=== PATIENT | male | born 1945 | race Caucasian/White ===

== ENCOUNTER → 2018-08-11 09:28 | Outpatient (CLI) | payer MEDICARE ==
--- NOTE | 2018-08-15 14:01 | EC ---
PATIENT:DIANELYS MARIE DATE OF SERVICE: 08/11/18 SEX: M MEDICAL RECORD: [id number] DATE OF : [birth year] LOCATION:[facility] AGE OF PATIENT: 73 ADMISSION DATE: 08/11/18 REFERRING PHYSICIAN: INTERPRETING PHYSICIAN: JIMMIE GAMEZ MD ECHOCARDIOGRAM REPORT ECHO CHARGES 4 ECHO COMPLETE Date: 08/11/18 CLINICAL DIAGNOSIS: CARDIAC ARRHYTHMIA'S, HX OF CAD/HTN ECHOCARDIOGRAPHIC MEASUREMENTS (adult normal given) AC root (d.<3.7cm) 4.5 cm LV Septum d (<1.2 cm> 1.5 cm Valve Excursion 1.9 cm LV Septum (systole) 1.7 cm Left Atria (s.<4.0cm> 3.9 cm LVPW d(<1.2cm) 1.5 cm RV (d.<2.3cm) 5.3 cm LVPW (sytole) 1.7 cm LV diastole(<5.6CM) 4.9 cm MV E-F(>70mm/sec) cm LV systole 3.3 cm LVOT Diameter 1.8 cm MV exc.(>10mm) 1.0 cm Est.ejection fraction (50-75%) % DOPPLER: LVIT cm/sec A 84.0 cm/sec E 61.0 cm/sec LA cm/sec RVSP 25 mmHg LVOT 127 cm/sec AOP1/2T m/s Asc. Ao 180 cm/sec RVOT 86 cm/sec RA cm/sec PA 108 cm/sec AV Gradient Peak 12.97mmHg AV Mean 6.64 mmHg AV Area 1.9 cm MV Gradient Peak 3.68 mmHg MV Mean 1.14 mmHg MV Area cm COMMENTS: Bottle Blower: Fina [employer]MIC[employer] Solutions Architect: 3 Dr. [place] TAPE# PACS Pericardial Effusion N DATE OF SERVICE: 08/11/2018 Adequate 2-D, color flow and spectral Doppler, and M-mode. Mild LVH. LV internal dimensions are normal. Wall motion is normal. EF is greater than or equal to 55%. Aortic valve sclerosis without stenosis by Doppler interrogation. There is mild AI by color flow imaging. Left atrium is normal. Mitral valve shows no prolapse. Trace MR. Right-sided chambers are grossly normal. Trace TR. ECHOCARDIOGRAM REPORT [id number] DIANELYS MARIE TRANSINT:[id number] Voice Confirmation ID: [id number] DOCUMENT ID: [id number] JIMMIE GAMEZ MD at 1401 CC: [id number] DICTATION DATE: 08/12/18 1233 TEACHING SPECIALISTS: 08/12/18 1417 DEP CLI 08/11/18 [place] [id number] [place] [id number]
== END | disposition home or self-care (01) ==
LOC: D.HCCARDIO 09:28
PROVIDERS: ATTEND Internal Medicine Interventional Cardiology
DX: I49.9 Cardiac arrhythmia, unspecified (principal)

== ENCOUNTER 2018-09-28 11:48 | Emergency (ER) | payer MEDICARE ==
[~2018-09-28] VITALS: Ht 182.9 cm; Wt 113.4 kg
[2018-09-28 11:54] VITALS: Ht 182.9 cm; Wt 113.4 kg
[2018-09-28] MEDS ORDERED: NORVASC10 MG PO (11:58)
[2018-09-28] MEDS ORDERED: COZAAR100 MG PO (11:59)
[2018-09-28] MEDS ORDERED: PEPCID AC20 MG PO (11:59)
[2018-09-28] MEDS ORDERED: METOPROLOL TART50 MG PO (11:59)
[2018-09-28] MEDS ORDERED: SYNTHROID25 MCG (12:00)
[2018-09-28] MEDS ORDERED: SINGULAIR10 MG PO (12:00)
[2018-09-28] MEDS ORDERED: FLUTICASONE PRO16 GM (12:00)
[2018-09-28] MEDS ORDERED: BAYER CHEWABLE81 MG PO (12:01)
[2018-09-28] MEDS ORDERED: ZYRTEC10 MG PO (12:01)
[2018-09-28] MEDS ORDERED: LIPITOR40 MG (12:01)
[2018-09-28] MEDS ORDERED: ULTRAM50 MG PO (14:59)
[2018-09-28] MEDS ORDERED: VOLTAREN75 MG PO (14:59)
[2018-09-28 15:49] VITALS: BP 151/83
== END 2018-09-28 15:36 | disposition home or self-care (01) ==
LOC: D.ER 11:48
DX: S82.401A Unspecified fracture of shaft of right fibula, initial encounter for closed fracture (principal); W19.XXXA Unspecified fall, initial encounter; M25.50 Pain in unspecified joint; I10 Essential (primary) hypertension

== ENCOUNTER → 2018-12-28 08:22 | Outpatient (CLI) | payer MEDICARE, BC ==
[~2018-12-28 08:22] MED LIST: BAYER CHEWABLE81 MG PO; COLLAGEN PO; COZAAR100 MG PO; DILAUDID4 MG PO; FLUTICASONE PRO16 GM NASAL; LIPITOR20 MG PO; LOSARTAN/HCT TAB 100 PO; NORVASC10 MG PO; PEPCID AC20 MG PO; SINGULAIR10 MG PO; SYNTHROID25 MCG; TOPROL XL50 MG PO; ULTRAM50 MG PO; VISTARIL50 MG PO; VITAMIN C PO; VOLTAREN75 MG PO; ZYRTEC10 MG PO
[2019-01-13 08:45] VITALS: BMI 34.0
== END | disposition home or self-care (01) ==
LOC: D.MRI 08:22
PROVIDERS: ATTEND Orthopaedic Surgery
DX: M75.122 Complete rotator cuff tear or rupture of left shoulder, not specified as traumatic (principal)

== ENCOUNTER 2019-01-13 07:05 | Day surgery (SDC) | payer MEDICARE, BC ==
[2019-01-12 09:56] LABS: HEMATOCRIT 41.4 % (42.0-54.0); HEMOGLOBIN 14.8 g/dL (13.5-17.5); MCH 30.6 pg (26.0-34.0); MCHC 35.7 g/dL (31.0-37.0); MCV 85.5 fL (80.0-100.0); MEAN PLATELET VOLUME 9.6 fL (7.4-10.4); RBC 4.84 10x6/uL (4.20-6.10); RDW 12.9 % (11.5-14.5); WBC 5.7 10x3/uL (4.8-10.8)
[~2019-01-13] VITALS: Ht 182.9 cm; Wt 113.4 kg
[~2019-01-13 07:05] MED LIST changes: -DILAUDID4 MG PO; -VISTARIL50 MG PO
[2019-01-13 08:45] VITALS: BP 125/66; Ht 182.9 cm; Wt 113.4 kg
[2019-01-13] MEDS ORDERED: VISTARIL50 MG PO (12:24)
[2019-01-13] MEDS ORDERED: DILAUDID4 MG PO (12:24)
--- NOTE | 2019-01-13 13:48 | OP ---
PATIENT NAME: JOSEFINA MARIE MEDICAL RECORD: [id number] :47 LOCATION:[facility] ADMISSION DATE: SURGEON: BRENDA WILLIS DO DATE OF OPERATION: 01/13/2019 PROCEDURE PERFORMED: Left shoulder arthroscopy with subacromial decompression, distal clavicle excision, labral debridement, and biceps tenodesis. PREOPERATIVE DIAGNOSES: Left shoulder pain, subacromial impingement, AC joint arthritis and SLAP tear. POSTOPERATIVE DIAGNOSES: Left shoulder pain, subacromial impingement, AC joint arthritis and SLAP tear. INDICATIONS: Mr. Marie is a 73-year-old male who has had left shoulder pain for quite some time. He did have a fall a few months ago. He may have sustained this injury then. He has had pain in his left shoulder since. He got an MRI, which showed a SLAP tear and subacromial impingement as well as AC joint arthritis. I informed him that we could clean out the spurs of his subacromial impingement and do the AC joint, clean that up and do a biceps tenodesis. It should take care of the problem. I would also look at his rotator cuff and see if it were torn while I was in there. He was okay with that as were the risks including infection, bleeding, damage to nerves and vessels, need for further surgery, and he signed a consent. SURGEON: Brenda Willis DO DESCRIPTION OF THE PROCEDURE: The patient received a block by anesthesia in the preoperative area. He was taken to the operative suite, laid in the right lateral decubitus position with the left shoulder up, axillary roll was placed under the axilla. The left shoulder was then prepped and draped in sterile fashion. Timeout was performed, everyone was in agreement with the correct side, site, patient and procedure. The patient was then sedated and LMA was placed. Then, 900 mg clindamycin was given to the patient. Once that was given, the procedure began with an 18-gauge spinal needle inflating the shoulder joint itself with 60 mL normal saline. This was then removed. An 11-blade scalpel was used to establish the posterior portal. Trocar was then entered into the shoulder joint and the camera. Anterior portal was then established with an 18-gauge spinal needle and 11-blade scalpel. The SLAP tear was noted at that time as well as a tear in the long head of the biceps tendon just distal to the insertion at the labrum. A burner was then brought in and the bicep tenotomy was done at that point as well as a labral debridement. The rotator cuffs were inspected and no full-thickness, more than 50% tears were seen in any of them, and no loose bodies were seen in the inferior gutter of the shoulder. The scope was then switched to the subacromial space and lateral portal was established with an 18-gauge spine needle and 11-blade scalpel. A subacromial decompression was done with the acromioplasty and distal clavicle was excised opening up the AC joint to approximately 7 mm. The bursa was then removed off the rotator cuff. The rotator cuff was then inspected on the bursal side and no tears were seen in it and the scope was put back in the shoulder joint to recheck the rotator cuff on the articular side. The articular side was inspected and no tears were seen. The scope was then removed. Excess water was suctioned out as best as possible. Then, attention was drawn to the biceps tendinous portion. A small incision was made in the anterior humerus. Careful dissection was made down to the long head of the bicep tendon. This was pulled OPERATIVE REPORT [id number] JOSEFINA MARIE out through the incision, whipstitched, and a button was placed on it and a unicortical hole was placed on the humerus. The button was put in and this was cinched down securing the biceps tendon into place. This was tied down and a free needle was used to go through the bicep tendon again with a suture and this was tied down. Excess tendon and suture were cut at that time and the site was thoroughly irrigated and closed with 2-0 Vicryl in inverted interrupted fashion, 4-0 Monocryl ran on the skin and Dermabond glue placed on the skin. The portal sites for the shoulder scope were closed with 4-0 Monocryl in inverted interrupted fashion and Dermabond glue placed on them. Dermabond and then Telfa and Tegaderm were placed on each of the incisions. He was awakened and taken to recovery in stable condition. BLOOD LOSS: Minimal. COMPLICATIONS: None. TRANSINT:[id number] Voice Confirmation ID: [id number] DOCUMENT ID: [id number] BRENDA WILLIS DO at 1348 CC: [id number] DICTATION DATE: 01/13/19 1221 PRACTICING UROLOGIST: 01/13/19 1252 PRE [facility] [address] [place] [address]
--- NOTE | 2019-01-13 16:08 | NUR ---
1430 IV DC'D. CATHETER TIP INTACT.NO BLEEDING AT SITE. BANDAID APPLIED.
== END 2019-01-13 14:39 | disposition home or self-care (01) ==
LOC: D.OPS 07:05 → D.PAN 10:30 → D.OPS 14:39
PROVIDERS: Anesthesiology; ATTEND Orthopaedic Surgery
DX: M75.42 Impingement syndrome of left shoulder (principal); M13.812 Other specified arthritis, left shoulder; S43.432A Superior glenoid labrum lesion of left shoulder, initial encounter; X58.XXXA Exposure to other specified factors, initial encounter